=== PATIENT | female | born 1965 | race Two or more races ===

== ENCOUNTER 2020-10-10 16:29 | Emergency (ER) | payer MEDICAID ==
[~2020-10-10] VITALS: Ht 154.9 cm; Wt 62.3 kg
[2020-10-10 16:46] VITALS: BP 116/60
== END 2020-10-10 17:56 | disposition home or self-care (01) ==
LOC: EMS 16:35
DX: F41.9 Anxiety disorder, unspecified (principal)
CPT/HCPCS: 99281; Z7502